=== PATIENT | male | born 1940 | race Caucasian/White ===

== ENCOUNTER 2020-04-04 10:31 | Emergency (ER) | payer MEDICARE, OTHER ==
[2020-04-04] MEDS ORDERED: Midazolam HCl 5 mg/ml Vial ONE (11:01)
[2020-04-04 11:19] LABS: #Eosinphils 0.1 thou/uL (0.0-0.7); #Lymphocytes 1.3 thou/uL (1.20-3.40); #Monocytes 0.4 thou/uL (0.11-0.59); #Neutrophils 4.6 thou/uL (1.40-6.50); %Basophils 0.5 % (0.0-1.0); %Eosinophils 1.5 % (0.0-10.0); %Lymphocytes 20.4 % (21.0-51.0); %Monocytes 5.9 % (0.0-10.0); %Neutrophils 71.7 % (42.0-75.0); Hemoglobin 10.9 g/dL (14.0-18.0); Mean Corpuscular HGB CONC 31.1 g/dL (32.0-36.0); Mean Corpuscular Hemoglobin 28.9 pg (27.0-31.0); Mean Corpuscular Volume 92.8 fL (78.0-98.0); Mean Platelet Volume 5.9 fL (7.4-10.4); Platelet Count 409 thou/uL (130-400); RBC Distribution Width 14.5 % (11.5-14.5); Red Blood Cell (RBC) Count 3.79 mill/uL (4.70-6.10); White Blood Cell (WBC) Count 6.5 thou/uL (4.8-10.8)
--- NOTE | 2020-04-04 11:27 | RAD ---
CHEST 1 VIEW: Date: 04/04/2020 INDICATION: Low blood pressure, senior living patient. COMPARISON: None. FINDINGS: There is diffuse scattered fibrotic change. There is mild cardiomegaly. There is a pacemaker overlyin g the right chest wall. No consolidation is evident. There is elevation of the left hemidiaphragm. Th ere is diffuse osteopenia. IMPRESSION: 1. Chronic lung changes. 2. Mild cardiomegaly. POS: BH
[2020-04-04 11:47] LABS: ALT (SGPT) 10 U/L (8-55); AST (SGOT) 15 U/L (5-34); Albumin 3.2 g/dL (3.4-4.8); Alkaline Phosphatase 62 U/L (40-110); Anion Gap 13 mmol/L (10-20); BUN (Urea Nitrogen) 27 mg/dL (8.4-25.7); Bilirubin, Total 0.5 mg/dL (0.2-1.2); CK (CPK) 171 U/L (30-200); Calc. Creatinine Clearance 0 mL/min (70-130); Calcium 8.3 mg/dL (7.8-10.44); Carbon Dioxide 24 mmol/L (23-31); Chloride 105 mmol/L (98-107); Estimated GFR-MDRD 56; Glucose 81 mg/dL (83-110); Protein, Total 7.2 g/dL (5.8-8.1); Sodium 138 mmol/L (136-145)
[2020-04-04 11:53] LABS: Lactic Acid 1.6 mmol/L (0.5-2.2)
--- NOTE | 2020-04-07 13:58 | EKG ---
Test Reason : Blood Pressure : / mmHG Vent. Rate : 134 BPM Atrial Rate : 138 BPM P-R Int : 000 ms QRS Dur : 136 ms QT Int : 354 ms P-R-T Axes : 000 -87 -19 degrees QTc Int : 528 ms Atrial fibrillation with rapid ventricular response Left axis deviation Right bundle branch block Abnormal ECG Confirmed by JORJE HODGE MD ([id number]), school photograph editor KAZ WALKER ([id number]) on 04/07/2020 1:58:00 PM Referred By: Confirmed By:JORJE HODGE MD
== END 2020-04-04 17:18 | disposition left against medical advice (07) ==
LOC: ERS 10:31
DX: I48.91 Unspecified atrial fibrillation (principal); E86.0 Dehydration; G30.9 Alzheimer's disease, unspecified; F02.80 Dementia in other diseases classified elsewhere, unspecified severity, without behavioral disturbance, psychotic disturbance, mood disturbance, and anxiety; E78.5 Hyperlipidemia, unspecified; N40.0 Benign prostatic hyperplasia without lower urinary tract symptoms
CPT/HCPCS: 71045; 80053; 82550; 83605; 83735; 84484; 85025; 87040; 93005; 96361; 96374; J2250